=== PATIENT | male | born 1995 | race Caucasian/White ===

== ENCOUNTER 2020-03-20 12:38 | Emergency (ER) | payer OTHER, SELFPAY ==
--- NOTE | ~2020-03-20 | XR_ITS ---
XR chest 2V DATE: 03/20/2020 13:09 INDICATION: Dizziness TECHNIQUE: PA and lateral views COMPARISON: None FINDINGS: Normal heart size. No hilar or mediastinal enlargement. No pulmonary infiltrate or consolidation, pleural effusion or pulmonary vascular congestion or pneumo thorax. Included skeletal structures are unremarkable. IMPRESSION: Negative Reviewed, dictated and finalized at location [facility]. IMPRESSION: Negative
--- NOTE | ~2020-03-20 | CT_ITS ---
EXAMINATION: CT brain wo con DATE: 03/20/2020 13:12 INDICATION: Dizziness. Seizure a few days ago. TECHNIQUE: Computed tomography (CT) of the head was performed without intravenous contrast. The mA wa s adjusted according to patient size. Iterative reconstruction technique was employed. Exam dose: 60 5.33 mGy-cm total exam DLP. COMPARISON: None FINDINGS: No intracranial mass lesion or hemorrhage or cerebrovascular accident. No midline shift or mass effect. Normal sanchez-white matter differentiation. Normal size of the ventricles. No subdural or epidural hematoma. No skull fracture or bone destruction is detected. Included paranasal sinuses and mastoid air cells a re unremarkable. IMPRESSION: Negative examination Reviewed, dictated and finalized at [facility]. Reviewed, dictated and finalized at [facility]. IMPRESSION: Negative examination
[2020-03-20 12:42] VITALS: BP 157/93; PULSE 105; RESP 19; TEMP 36.9; O2SAT 100
--- NOTE | 2020-03-20 12:51 | ECG_ITS ---
Measurements Intervals [place] Rate: 97 P: 17 UT: 166 QRS: -1 QRSD: 97 T: 14 QT: 330 QTc: 420 Interpretive Statements SINUS RHYTHM VOLTAGE CRITERIA FOR LVH BASELINE WANDER- I, AVL, AVF BORDERLINE ECG Electronically Signed On 03-20-2020 12:59:58 CDT by Joon Musa D.O.
[2020-03-20 12:55] VITALS: BP 156/85; PULSE 63
--- NOTE | 2020-03-20 12:56 | ED.DIZZY ---
HPI - Dizziness General Chief Complaint: Dizziness <JONNATHAN Kemp Last Filed: 03/20/20 14:33> Stated Complaint: dizzy <JONNATHAN Kemp Last Filed: 03/20/20 14:33> Time Seen by Provider: 03/20/20 12:40 <JONNATHAN Kemp Last Filed: 03/20/20 14:33> Source: patient <JONNATHAN Kemp Last Filed: 03/20/20 14:33> Mode of arrival: ambulatory <JONNATHAN Kemp Last Filed: 03/20/20 14:33> Limitations: no limitations <JONNATHAN Kemp Last Filed: 03/20/20 14:33> History of Present Illness HPI Narrative: This is a 24 year old male that presents to the ER for lightheadedness x 2 years. Reports a head injury years ago. Reports he was working at [employer] and stood up quickly and hit his head on a concrete wall. Reports since then he has trouble with headaches and getting lightheaded at times. Reports on Wednesday he had an episode while laying in bed where he was feeling very lightheaded and started twitching. Reports his girlfriend reports this lasted a minute or two. Patient denies losing consciousness in this episode or bowel/bladder incontinence. Reports he is having another episode of lightheadedness currently which prompted him to come be seen. Denies fever, cold symptoms, shortness of breath, vision changes, vomiting, numbness or weakness. <JONNATHAN Kemp Last Filed: 03/20/20 14:33> Related Data Home Medications: Home Medications Medication Instructions Recorded Confirmed No Home Medications 03/20/20 03/20/20 <JONNATHAN Kemp Last Filed: 03/20/20 14:33> Allergies/Adverse Reactions: Allergies Allergy/AdvReac Type Severity Reaction Status Date / Time No Known Allergies Allergy Verified 03/20/20 12:51 <JONNATHAN Kemp Last Filed: 03/20/20 14:33> Review of Systems Review of Systems: Narrative: CONSTITUTIONAL: Denies fever EYES: Denies visual changes ENT: Denies rhinorrhea, congestion, sore throat CARDIOVASCULAR: Denies chest pain RESPIRATORY: Denies cough or dyspnea. GASTROINTESTINAL: Denies vomiting NEUROLOGIC: Denies headache, numbness, or weakness. <Bea Khoury PA-C - Last Filed: 03/20/20 14:33> All systems reviewed & are unremarkable except as noted in HPI and below <Bea Khoury PA-C - Last Filed: 03/20/20 14:33> PMFSH Social History Social History: Social History (Updated 03/20/20 @ 13:03 by Bea Khoury PA-C) Smoking status: Never smoker Substance use: never Gender identity (if verbalized by the patient): Male <Bea Khoury PA-C - Last Filed: 03/20/20 14:33> Exam Narrative: Exam Narrative: GENERAL: Well-appearing, well-nourished, and in no acute distress. HEAD: Normocephalic, atraumatic. EYES: PERRLA and EOMI. ENT: Nares clear, no rhinorrhea or epistaxis. Mucous membranes moist. Oropharynx without tonsillar hypertrophy exudate or other lesions. Bilateral TMs pearly sanchez non-bulging NECK: Supple. No adenopathy or masses. CHEST: Clear to auscultation. No respiratory distress. No wheezes rales or rhonchi HEART: Regular rate and rhythm. No murmur heard. Normal peripheral pulses. EXTREMITIES: Normal range of motion. No edema. Strength equal in bilateral upper and lower extremities SKIN: Warm, dry, no rash. NEURO: No focal deficits. Alert and oriented x3. CN II-XII grossly intact. Normal [id number]. Normal [id number] PSYCH: Normal mood and affect <Bea Khoury PA-C - Last Filed: 03/20/20 14:33> Course Vital Signs Vital signs: Vital Signs Temperature 36.9 C 03/20/20 12:42 Pulse Rate 105 H 03/20/20 12:42 Respiratory Rate 19 03/20/20 12:42 Blood Pressure 157/93 H 03/20/20 12:42 Pulse Oximetry 100 03/20/20 12:42 Temperature 36.9 C 03/20/20 12:42 Pulse Rate 65 03/20/20 15:48 Respiratory Rate 16 03/20/20 15:48 Blood Pressure 137/82 03/20/20 15:48 Pulse Oximetry 99 03/20/20 15:48 <Bea Khoury PA-C
[2020-03-20 12:57] VITALS: BP 140/85; PULSE 86
[2020-03-20 12:59] VITALS: BP 143/85; PULSE 75
[2020-03-20 13:00] LABS: Basophils Absolute Auto 0.1 K/mm3 (0.0-0.1); Eosinophils Absolute Auto 0.4 K/mm3 (0-0.3); Eosinophils Percent Auto 4.7 % (0-4.4); Hematocrit 47.6 % (42.0-52.0); Hemoglobin 15.8 g/dL (14.0-18.0); Immature Granulocyte Absolute 0.03 K/mm3 (0.00-0.031); Immature Granulocyte Percent A 0.4 % (0-0.5); Lymphocytes Absolute Auto 2.49 K/mm3 (0.9-3.2); Lymphocytes Percent Auto 32.6 % (18.3-44.2); Mean Corpuscular HGB Conc 33.2 g/dl (32-36); Mean Corpuscular Hemoglobin 27.7 pg (26-34); Mean Corpuscular Volume 83.5 fl (80-100); Mean Platelet Volume 9.8 fl (7.4-10.4); Monocytes Absolute Auto 0.6 K/mm3 (0.1-0.6); Monocytes Percent Auto 7.7 % (2.6-8.5); Neutrophils Absolute Auto 4.1 K/mm3 (1.3-6.7); Neutrophils Percent Auto 53.6 % (45.5-73.1); Platelet Count Result 280 k/mm3 (150-375); Red Cell Distribution Width 12.9 % (11.5-14.5); White Blood Count 7.6 K/mm3 (4.5-10.0)
[2020-03-20 13:13] LABS: Alanine Aminotransferase 23 U/L (4-50); Albumin Level 4.9 g/dL (3.5-5.1); Alkaline Phosphatase 69 U/L (38-126); Aspartate Amino Transferase 26 U/L (17-59); Bilirubin,Total 0.6 mg/dL (0.2-1.3); Blood Urea Nitrogen 15 mg/dL (9-20); Calcium 9.8 mg/dL (8.4-10.2); Carbon Dioxide 28 mmol/L (22-30); Chloride 103 mmol/L (98-107); Estimated CRCL calculation 114 ml/min; Estimated Glomerular Filt Rate > 60; Glucose 103 mg/dL (75-110); Potassium 4.4 mmol/L (3.4-5.0); Sodium 139 mmol/L (137-145)
[2020-03-20] MEDS: ONDANSETRON INJ 4 MG/2 ML VIAL IV PUSH (13:16)
[2020-03-20] MEDS: MECLIZINE HCL 25 MG TABLET PO (13:16)
[2020-03-20] MEDS: SODIUM CHLORIDE 0.9% IV 1,000 ML 999 ML IV CONT (13:16)
[2020-03-20 13:50] LABS: Add Urine Microscopic? NO; Appearance Urine Clear (Clear); Bilirubin Urine Negative (Negative); Blood Urine Negative (Negative); Color Urine Yellow (Yellow); Glucose Urine UA Negative (Negative); Ketones Urine Negative (Negative); Leukocyte Esterase Ur Negative LEU/UL (Negative); Nitrate Urine Negative (Negative); Protein Urine Negative (Negative); Specific Grav Ur 1.024 (1.001-1.035); Urobilinogen Urine Negative mg/dL (<2.0)
[2020-03-20 14:16] VITALS: BP 131/84; PULSE 80; RESP 16; O2SAT 99
--- NOTE | 2020-03-20 14:16 | PC.NURSE ---
pt reports reduction in dizziness after iv fluids and meds
[2020-03-20] MEDS: SODIUM CHLORIDE 0.9% IV 500 ML 999 ML IV CONT (14:59)
[2020-03-20 15:48] VITALS: BP 137/82; PULSE 65; RESP 16; O2SAT 99
== END 2020-03-20 15:55 | disposition home or self-care (01) ==
PROVIDERS: Physician Assistant; Emergency Provider Emergency Medicine
DX: R42 Dizziness and giddiness (principal); I95.1 Orthostatic hypotension; R94.31 Abnormal electrocardiogram [ECG] [EKG]; Z87.820 Personal history of traumatic brain injury
CPT/HCPCS: 36415; 70450; 71046; 80053; 81003; 85025; 93005; 96361; 96374; 99284; A9270; J2405; J7030; J7040

== ENCOUNTER 2021-02-28 13:06 | Emergency (ER) | payer OTHER, SELFPAY ==
--- NOTE | ~2021-02-28 | XR_ITS ---
EXAMINATION: XR hand RT min 3V EXAM DATE: 02/28/2021 13:34 INDICATION: Dropped dryer on hand, fracture. TECHNIQUE: Right hand frontal, lateral and oblique projections obtained and reviewed. There is no pr ior study for comparison. FINDINGS: Acute closed posttraumatic and mildly comminuted right 5th metacarpal neck/shaft fracture. Mild volar angulation. There is overlying soft tissue swelling. No other acute findings. IMPRESSION: Right 5th metacarpal neck/shaft fracture, mild comminution and volar angulation. Reviewed, dictated and finalized at location [facility]. IMPRESSION: Right 5th metacarpal neck/shaft fracture, mild comminution and vola r angulation.
[2021-02-28 13:09] VITALS: BP 155/88; PULSE 110; RESP 16; TEMP 36.7; O2SAT 100
--- NOTE | 2021-02-28 15:29 | ED.GENADULT ---
HPI - General Adult General Chief complaint: Extremity Injury, Upper Stated complaint: hand injury Time Seen by Provider: 02/28/21 14:53 Source: patient Mode of arrival: ambulatory Limitations: no limitations History of Present Illness HPI narrative: Patient is a 25-year-old male who presents with right hand injury patient notes he was moving a washer when it fell on the hand and has since had bruising swelling and pain over the right hand patient notes aching pain worse with activity and movement injury occurred just prior to arrival denies other injuries or complaints presents in no distress Related Data Allergies Allergy/AdvReac Type Severity Reaction Status Date / Time No Known Allergies Allergy Verified 03/20/20 12:51 Review of Systems Review of Systems: All systems reviewed & are unremarkable except as noted in HPI and below PMFSH Past Medical History Medical History (Updated 02/28/21 @ 15:32 by Zachary Hubbard PA-C) Seizure Social History Social History (Updated 03/20/20 @ 13:03 by Bea Khoury PA-C) Smoking status: Never smoker Substance use: never Gender identity (if verbalized by the patient): Male Exam Narrative: Exam Narrative: GENERAL: Well-appearing, well-nourished, and in no acute distress. HEAD: Normocephalic, atraumatic. EYES: PERRLA and EOMI. ENT: Nares clear, no rhinorrhea or epistaxis. Mucous membranes moist. EXTREMITIES: Bruising swelling and tenderness over the dorsal surface lateral hand SKIN: Warm, dry, no rash. NEURO: No focal deficits. Alert and oriented x3. Neurovascularly intact. Capillary refill less than 2 seconds PSYCH: Normal mood and affect. Course Consultations Consultation #1: Case discussed with Dr. Daniel barth at [place] who will see the patient in clinic on the nin Date: 02/28/21 Time: 15:30 Vital Signs Vital signs: Vital Signs Temperature 98.1 F 02/28/21 13:09 Pulse Rate 110 H 02/28/21 13:09 Respiratory Rate 16 02/28/21 13:09 Blood Pressure 155/88 H 02/28/21 13:09 Pulse Oximetry 100 02/28/21 13:09 Temperature 98.1 F 02/28/21 13:09 Pulse Rate 110 H 02/28/21 13:09 Respiratory Rate 16 02/28/21 13:09 Blood Pressure 155/88 H 02/28/21 13:09 Pulse Oximetry 100 02/28/21 13:09 Medical Decision Making MDM Narrative Medical decision making narrative: Patients injury or pain is consistent with musculoskeletal etiology. No signs of neurological or vascular compromise on exam. Compartments and tisues are soft without signs of compartment syndrome. Pain is felt appropriate for further evaluation on an outpatient basis. Vital Signs Vital Signs: Vital Signs Temperature 98.1 F 02/28/21 13:09 Pulse Rate 110 H 02/28/21 13:09 Respiratory Rate 16 02/28/21 13:09 Blood Pressure 155/88 H 02/28/21 13:09 Pulse Oximetry 100 02/28/21 13:09 Temperature 98.1 F 02/28/21 13:09 Pulse Rate 110 H 02/28/21 13:09 Respiratory Rate 16 02/28/21 13:09 Blood Pressure 155/88 H 02/28/21 13:09 Pulse Oximetry 100 02/28/21 13:09 Discharge Plan Discharge Clinical Impression: Closed fracture of right hand Patient Disposition: Home, Self-Care Condition: Stable Instructions: Antibiotic Form, Hand Fracture (ED) Additional Instructions: Follow-up with hand surgery at [facility] you are to be [facility] with Dr. Sanchez today and you are to follow in clinic on the which is a Wednesday contact them with #[phone] to set up for your appointment Take your x-ray copies to appointment Return if symptoms worsen or concerns or any increase in redness swelling pain or fever over 100.5 Follow patient education sheets Rest ice and elevation of the extremity Prescriptions: New ibuprofen [IBU] 600 mg tablet 600 mg PO Q6H PRN (Reason: fever or pain) Qty: 7 RF: 0 Follow-up/Referrals: PHYSICIAN,EXPERIMENTAL TECHNICIAN [Primary Care Provider] - Kobe
[2021-02-28] MEDS: IBUPROFEN 600 MG TABLET PO (15:39)
== END 2021-02-28 16:49 | disposition home or self-care (01) ==
PROVIDERS: Emergency Provider Emergency Medicine
DX: S62.336A Displaced fracture of neck of fifth metacarpal bone, right hand, initial encounter for closed fracture (principal); S62.326A Displaced fracture of shaft of fifth metacarpal bone, right hand, initial encounter for closed fracture; W20.8XXA Other cause of strike by thrown, projected or falling object, initial encounter
CPT/HCPCS: 29125; 73130; 99283; 99284; A9270